=== PATIENT | female | born 1970 | race Caucasian/White ===

== ENCOUNTER 2021-01-16 20:34 | Emergency (ER) | payer BC ==
[~2021-01-16] VITALS: Ht 157.5 cm; Wt 63.5 kg
[2021-01-16 20:40] VITALS: BP_SYST 117
[2021-01-16] MEDS ORDERED: ALPRAZolam 0.25 MG TABLET PO ONE (21:00)
[2021-01-16 22:08] VITALS: BP_SYST 118
== END 2021-01-16 22:08 | disposition home or self-care (01) ==
LOC: SED 20:34
DX: F41.9 Anxiety disorder, unspecified (principal); F32.9 Major depressive disorder, single episode, unspecified
CPT/HCPCS: 71045; 81025; 93005; 99283